=== PATIENT | male | born 1945 | race Caucasian/White ===

== ENCOUNTER → 2017-03-01 | Outpatient (CLI) | payer MEDICARE, OTHER ==
--- NOTE | 2017-03-01 15:10 | KCIC ---
PROCEDURE MRI cervical spine without contrast. HISTORY Cervicalgia, new onset left scapula pain, left upper extremity numbness, left arm pain for 2 months TECHNIQUE Multiplanar, multi sequential non contrast MR imaging was performed of the cervical spine. COMPARISON None FINDINGS There is some motion degradation, somewhat limits accurate evaluation of the neural foramina. Cervical cord caliber is within limits without significant focal signal abnormality. Cervical vertebral body stature is adequate. There is minimal posterior subluxation C4 relative to C5. There is moderate to severe degenerative disc disease at C6-7, to lesser degree at C4-5, and mild disc desiccation C5-C6. C6-7 endplate edema is probably reactive/degenerative in etiology. Barely included, there is a STIR hyperintense lesion of the visualized right thyroid gland on the order of 2.1 cm. C2-3: Spinal canal and neural foramina are adequate. There is mild right facet degenerative change. C3-C4: There is very minimal disc osteophyte complex. Left neural foramen and spinal canal are adequate. There is mild to moderate narrowing of the right neural neural foramen due to facet and uncovertebral degenerative change. C4-5: There is disc osteophyte complex and bulge with indentation upon the ventral thecal sac, effacement of ventral subarachnoid space and contact of ventral cord. Central canal is narrowed to 8-9 millimeters. There is moderate, right greater than left facet degenerative change. There is uncovertebral degenerative change bilaterally. There is likely mild to moderate left and mild right neural foramina compromise. C5-C6: There is negligible disc osteophyte complex. Spinal canal is adequate. Neural foramina are not significantly narrowed. There is mild to moderate facet degenerative change. C6-7: There is disc osteophyte complex, superimposed shallow protrusion in the left paracentral region. Central canal is borderline on the order of 10 millimeters. Neural foramina are not significantly narrowed. C7-T1: Spinal canal is adequate. Neural foramina are adequate. Small cystic foci in the neural foramina bilaterally are likely due to nerve root sleeve cysts. IMPRESSION 1. There is degenerative disc disease greatest at C6-7, to lesser degree at C4-5. C6-7 endplate edema is likely reactive/degenerative in etiology. There is spondylosis greatest at the same levels. There is mild spinal stenosis at C4-5, borderline narrowing at C6-7. 2. There is likely mild to moderate left C4-5 and right C3-4 neural foramina compromise. 3. Barely included, there is approximate 2 centimeter STIR hyperintense lesion of the visualized right thyroid gland better evaluated with ultrasound. Electronically signed by: Bandar Akers MD (Mar 01, 2017 15:08:36)
== END | disposition home or self-care (01) ==
LOC: KCIC MRI 13:37
PROVIDERS: ATTEND Family Medicine
DX: M54.2 Cervicalgia (principal); M48.02 Spinal stenosis, cervical region
CPT/HCPCS: 72141